=== PATIENT | male | born 1980 | race Two or more races ===

== ENCOUNTER 2016-10-30 11:26 | Day surgery (SDC) | payer OTHER ==
[2016-10-30] VITALS (7 sets, daily range): BP systolic 113–143; BP diastolic 73–89; PULSE 86–94; RESP 13–18; O2SAT 94–99
[~2016-10-30] VITALS: Ht 180.3 cm; Wt 117.0 kg
--- NOTE | 2016-10-30 07:34 | PCM.HPANE ---
Patient Data Surgeon Admitting Provider: Attending Provider:Carole Erickson MD Primary Care Physician:Phillip Bobo Other Provider:Swapna Hamiltoningham Anesthesia Reason for Visit Right Ureteral Stone Ht/WT & BMI Height (Feet): 5 Height (Inches): 11.00 Weight (Kilograms): 115.670 Body Mass Index 35.00 Allergies Coded Allergies: latex (Verified Allergy, Unknown, UNKNOWN, 10/30/16) Past Anesthesia History Anesthesia History: Denies:: Anesthesia Reactions, Fam Anesthesia Reaction, Fam Malignant Hypertherm, Malignant Hyperthermia Diabetes History Hx Diabetes?: No MRSA MRSA: No Medications Hypertension Medication: No Reported Medications Tramadol 50 Mg [id number] Mg PO BID PRN For Pain Ref 0 10/30/16 Ibuprofen 800 Mg [id number] Mg PO TID PRN For Pain Ref 0 10/30/16 Tamsulosin (Flomax)0.4 Mg Capsule0.4 Mg PO DAILY Ref 0 10/30/16 Hydrocodone-Acetaminophen 7.5-325 mg 1 Each Tablet1 Tablet PO Q6H PRN For Pain Ref 0 10/29/16 Discontinued Reported Medications Tamsulosin-Expunged Drug, Do Not Renew! (Flomax-Expunged Drug, Do Not Renew!) 0.4 Mg Capsule0.4 Mg PO DAILY 09/14/10 Atenolol-Expunged Drug, Do Not Renew! 25 Mg Tablet1 Tab PO HS 09/14/10 Oxycodone/APAP-Expunged Drug, Do Not Renew! (Endocet 2-006-Hhaspbpd Drug, Do Not Renew!)1 Tab Tablet1 Tab PO Q4-6H prn 09/14/10 History History of ENT Problems?: No Hx of Heart Problems?: Yes Cardiovascular History: Positive for:: Hypertension (HX OF) Denies:: Heart Murmur Hx of Respiratory Problem?: No Respiratory History: Denies:: Use of C-PAP Machine Hx Neurologic Problems?: No Hx of GI Problems?: No Gastrointestinal History: Positive for:: Gastroesphageal Reflux Hx of Problems?: Yes Genitourinary History: Positive for:: Kidney Stones (S/P CYSTO/RTY STENT 2011 RT URETERAL STONE=CURRENT PROBLEM) Other Pertinent History: C/OF LUTS-FREQUENCY,DRIBBLING,DECREASED STREAM, URGENCY,DYSURIA Male Hx: Denies:: Prostate Problems Scrotal Mass Testicular Surgery Skin History: Denies:: History Skin Disorders? Pressure Ulcers Hx Musculoskeletal Problems?: Yes Musculoskeletal History: Positive for:: Musculoskeletal Trauma (S/P SHOULDER RPR) Hx of Psycho/Social Problems?: No Hx Surgeries?: Yes (SHOULDER RPR,CYSTO/RT STENT ) Hx Any Other Health Problems?: Yes Other History: Denies:: Cancer Endocrine Disease Hospitalization (hematuria) Thyroid Disease History Blood Transfusions: Denies:: Blood Transfusions Hx Diabetes: No Hx Alcohol Use: Yes (OCCAS)Hx Substance Use: NoHave You Smoked inLast 12 mo: Yes (VAPING; TRYING TO QUIT)Approx How Many Cigarettes/day: 1 PPD X 20YRS Stop/Bang S-Snoring: Do You Snore Loudly: No T-Tired: feel tired, fatigued: No O-Obsered: Observed not breath: No P-Blood Pressure: treated: Yes B- Body Mass Index > 35 kg/m2: Yes A- Age over 50: No N- Neck Large Circumference: Yes G- Gender Male: Yes GELY Total Score: 4 Risk Assessment Category Category 1A: Patient has history of documented sleep apnea, and HAS NOT received any narcotic, sedative or anesthesia administration during this stay. Category 1B: Patient has history of documented sleep apnea, and HAS received any narcotic , sedative or anesthesia administration during this stay Category 2: Patient has SUSPECTED Obstructive Sleep Apnea, and HAS received any narcotic , sedative or anesthesia administration during this stay. Category 3: Patient has SUSPECTED Obstructive Sleep Apnea and HAS NOT received narcotic, sedative or anesthesia administration during this stay. Category 4: Outpatient in Procedural Areas with known sleep apnea or who screen positive for High Risk via the STOP/BANG questionnaire. Exam Exam General Appearance: Alert, Oriented X3, Cooperative, No Acute Distress HEENT/AIRWAY: MP 1, Other (large barcenas) Lungs: Normal Air Movement Heart: Regular Rate/Rhythm Plan Impression Patient chart reviewed, patient interviewed and anesthestic plan with risks, benefits, and alternatives discussed, and informed consent obtained. NPO Status: 0500 09/18/10 ASA Physical Status: ASA2 Mod Systemic Disease Anesthetic Plan: GA Bene/Risks/Altern/Consents: Yes HP Complete Prior to Induction: Yes Tory Barry DO Oct 30, 2016 07:34
[~2016-10-30 11:26] MED LIST: CeFAZolin Inj 2 GM in IV Premix 1 EACH IV ONE; HYDR-3825 PO; TAM4 PO
[2016-10-30] MEDS ORDERED: fentaNYL-PF 50 mCg/mL 2 mL Inj ONE (11:27)
[2016-10-30] MEDS ORDERED: Propofol 10,000 mCg/mL 20 mL Inj ONE (11:27)
[2016-10-30] MEDS ORDERED: Dexamethasone 4 mg/mL Inj ONE (11:27)
[2016-10-30] MEDS ORDERED: Ondansetron 2 mg/mL 2 mL Inj ONE (11:27)
[2016-10-30] MEDS ORDERED: Lidocaine PF 1% 30 mL Inj ONE (11:27)
[2016-10-30] MEDS: Lactated Ringer's 1,000 ML IV SCH ×2 (11:40→12:38)
[2016-10-30] MEDS ORDERED: IBUP800T28 PO (11:49)
[2016-10-30] MEDS ORDERED: TAMS0.4C98 PO (11:49)
[2016-10-30] MEDS ORDERED: TRAM50TA2 PO (11:49)
[2016-10-30] MEDS ORDERED: CeFAZolin Inj 2 gm / 50mL D5W IV ONE (12:02)
[2016-10-30] MEDS ORDERED: Belladonna Alk-Opium 60 mg Rectal Suppository RECTAL ONE ×2 (12:40→13:01)
[2016-10-30] MEDS ORDERED: Lactated Ringer's 1,000 ML IV SCH (13:01)
[2016-10-30] MEDS ORDERED: Lactated Ringer's 500 ML IV PRN (13:01)
[2016-10-30] MEDS ORDERED: HYDROmorphone 1 mg/mL Inj IVPUSH PRN (13:05)
[2016-10-30] MEDS ORDERED: EPHEDrine Sulfate 50 mg/mL Inj IVPUSH PRN (13:05)
[2016-10-30] MEDS ORDERED: Ondansetron 2 mg/mL 2 mL Inj IVPUSH PRN (13:05)
[2016-10-30] MEDS ORDERED: Phenylephrine 10,000 mCg/mL Inj IVPUSH PRN (13:05)
[2016-10-30] MEDS ORDERED: MetoCLOpramide 5 mg/mL 2 mL Inj IVPUSH PRN (13:05)
[2016-10-30] MEDS ORDERED: oxyCODONE-Acetamin 5-325 mg Tablet PO PRN (13:15)
[2016-10-30] MEDS: fentaNYL-PF 50 mCg/mL 2 mL Inj IVPUSH PRN ×2 (13:30→13:37)
--- NOTE | 2016-10-30 21:30 | OP ---
[address] [address] OPERATIVE REPORT PATIENT: JOSE MANUEL ARCHER : 1980 MR#: [id number] ADMIT: 10/30/2016 JOB ID: [id number] DATE OF SURGERY: 10/30/2016 SURGEON: Carole Erickson MD PREOPERATIVE DIAGNOSIS(ES): Right ureteral calculus. POSTOPERATIVE DIAGNOSIS(ES): Right ureteral calculus. PROCEDURES: 1. Cystoscopy. 2. Ureteroscopy. 3. Stone basketing. 4. Stent. ANESTHESIA: General anesthetic, Dr. Barry. DESCRIPTION OF PROCEDURE: Under general anesthetic, the patient was placed in lithotomy position. The genitalia prepped and draped in a sterile manner. A 22-Bahraini cystoscope was introduced through a normal urethra. The right intramural ureter was somewhat dilated. A 0.035 Glidewire was advanced to the level of the right renal pelvis. A balloon dilation catheter was used to dilate the right ureteral orifice. A 7-Bahraini semi-rigid ureteroscope was then advanced into the distal ureter. Balloon dilation catheter had fragmented the stone. Approximately eight stone fragments were removed. The ureteroscope was then advanced further into the ureter. No further stone fragments remain. A 6-Bahraini 24 cm double-J stent was then passed over the wire. When it was confirmed to be in good position fluoroscopically, the wire was withdrawn. The patient tolerated the procedure well. A B and O suppository was given for postoperative analgesia. The patient left the operating room in good condition.
--- NOTE | 2016-10-31 20:07 | PCM.ANEP1 ---
Post Anesthesia Phase 1 PACU Phase 1 Assessment Anesthetic Administered: GA Level of Alertness: Awake, talking VILLARREAL's with Equal Strength: Yes Pain: No Nausea or Vomiting: No Oxygen Delivery: Simple Mask Lungs: Normal Air Movement Tory Barry DO Oct 31, 2016 20:07
--- NOTE | 2016-10-31 20:07 | PCM.ANEP2 ---
Post Anesthesia Evaluation ASA/CMS Post Anesthesia VS in Patient's Normal Range?: Yes Resp Stable; Airway Patent?: Yes CV Function & Hydration Stable: Yes Mental Status Recovered?: Yes Pain control Satisfactory?: Yes N/V Control Satisfactory?: Yes Tory Barry DO Oct 31, 2016 20:07
[2016-11-06 15:08] LABS: Stone Color Tan (.)
== END 2016-10-30 23:59 | disposition home or self-care (01) ==
LOC: SAS 11:26
PROVIDERS: ATTEND Urology
PROC: 0T768DZ Dilation of Right Ureter with Intraluminal Device, Via Natural or Artificial Opening Endoscopic (ICD-10-PCS; 2016-10-30)
PROC: 0TC68ZZ Extirpation of Matter from Right Ureter, Via Natural or Artificial Opening Endoscopic (ICD-10-PCS; principal; 2016-10-30 13:45)
DX: N20.1 Calculus of ureter (principal)